=== PATIENT | male | born 1970 | race American Indian/Alaskan Native ===

== ENCOUNTER 2020-03-09 10:02 | Day surgery (SDC) | payer MEDICARE, MEDICAID ==
[2020-03-03 15:38] LABS: BASOPHILS % (AUTO) 0.5 % (0-1); EOSINOPHILS # (AUTO) 0.1 X10'3 (0-0.9); EOSINOPHILS % (AUTO) 1.2 % (0-6); LYMPHOCYTES % (AUTO) 23.6 % (21-51); MEAN CORPUSCULAR HGB CONC 33.3 g/dL (33.0-36.5); MEAN CORPUSCULAR VOLUME 87.2 FL (78-98); MEAN PLATELET VOLUME 10.4 FL (7.4-10.4); MONOCYTES # (AUTO) 0.3 X10'3 (0-0.9); MONOCYTES % (AUTO) 6.7 % (2-12); PRE OP HEMATOCRIT 45.1 % (42.0-52.0); RED BLOOD COUNT 5.17 X10'6 (4.70-6.10); RED CELL DISTRIBUTION WIDTH 13.3 % (11.5-14.5)
[2020-03-03 15:49] LABS: PRE OP PROTIME 10.6 SECONDS (9.0-12.0)
[2020-03-03 15:53] LABS: ALBUMIN 4.2 G/DL (3.4-5.0); ALBUMIN/GLOBULIN RATIO 1.2 (1.1-1.5); ALKALINE PHOSPHATASE 99 IU/L (46-116); BLOOD UREA NITROGEN 11 MG/DL (7-18); CALCIUM 8.9 MG/DL (8.5-10.1); CHLORIDE 107 MMOL/L (99-107); CREATININE 0.92 MG/DL (0.60-1.10); PRE OP ALT 45 U/L (30-65); PRE OP ANION GAP 7 (8-16); PRE OP AST 37 U/L (10-37); PRE OP BILIRUB, TOTAL 0.9 MG/DL (0.0-1.0); PRE OP GLUCOSE 88 MG/DL (70-104); PRE OP SODIUM 144 MMOL/L (135-145); TOTAL CARBON DIOXIDE 30.1 MMOL/L (24-32); TOTAL PROTEIN 7.7 G/DL (6.4-8.2); eGFR 88 ML/MIN
[2020-03-03 16:00] LABS: PRE OP PLATELET COUNT 95 X10'3 (140-440)
[2020-03-03 18:11] LABS: PLATELET FUNCTION (ADP) 116 SECONDS (63-104)
[~2020-03-09] VITALS: Ht 172.7 cm; Wt 102.1 kg
[2020-03-09] VITALS (10 sets, daily range): BP systolic 127–149; BP diastolic 72–94
[~2020-03-09 10:02] MED LIST: ASPI-1130 PO; BUPIVAcaine 0.5% W/EPI /PF 30ml vial ONE; CHOL200016 PO; LIDOcaine 1% W/epiNEPHrine 1:100,000 20ml vial ONE; MAGN500C16 PO; bacitracin 15gm ointment TP ONE; famotidine 20mg tablet PO ONE; methylPREDNISolone acetate 80mg/ml inj**IM only ONE; mupirocin 2% ointment 22GM ONE; oxymetazoline 15 ML nasal spray NS ONE; ringers solution, lacted 1,000 ML IV SCH
[2020-03-09] MEDS ORDERED: midazolam 2 mg/2 ml injection ONE (13:38)
[2020-03-09] MEDS ORDERED: propofol inj 20 ML IV ONE (13:39)
[2020-03-09] MEDS ORDERED: LIDOcaine 2% (20mg/ml) 5ml vial ONE (13:39)
[2020-03-09] MEDS ORDERED: fentaNYL /PF 50mcg/ml 5ml ampule ONE (13:39)
[2020-03-09] MEDS ORDERED: cocaine 4% topical solution 4ml bottle ONE (13:56)
[2020-03-09] MEDS ORDERED: cefTAZidime 1gm inj ONE (13:57)
[2020-03-09] MEDS ORDERED: ringers solution, lacted 1,000 ML IV SCH (13:58)
[2020-03-09] MEDS ORDERED: ondansetron/PF 4mg/2ml inj IV PRN (14:00)
[2020-03-09] MEDS ORDERED: proCHLORperazine 10 MG/2 ml inj IV PRN (14:00)
[2020-03-09] MEDS ORDERED: morphine 4 MG/ML inj SYRINge IV PRN (14:00)
[2020-03-09] MEDS ORDERED: meperidine/PF 25mg/ml syringe IV PRN ×3 (14:00)
[2020-03-09] MEDS ORDERED: morphine 2 MG/ML inj. syringe IV PRN (14:00)
[2020-03-09] MEDS ORDERED: sevoflurane 250ml liquid IH ONE (14:15)
[2020-03-09] MEDS ORDERED: rocuronium 10mg/ml inj IV ONE (14:18)
[2020-03-09] MEDS ORDERED: ondansetron/PF 4mg/2ml inj ONE (14:33)
[2020-03-09] MEDS ORDERED: dexamethasone sod phosphate 4mg/ml inj. ONE (14:34)
--- NOTE | 2020-03-09 15:42 | NUR ---
Received from OR via [facility], accompanied by Anesthesiologist DR STEWART and report given by Anesthesiologist. PT DROWSY, DENIES PAIN, BILAT COTTONOIDS IN PTS NARES, CDI. Addendum: 03/09/20 at 1617 by Rachell Aguirre RN Amended: Links added.
[2020-03-09] MEDS ORDERED: salt irrigation nasal spray 45 ML SPRAY NS PRN (16:00)
[2020-03-09] MEDS ORDERED: oxymetazoline 15 ML nasal spray NS SCH (16:00)
[2020-03-09] MEDS ORDERED: mupirocin 2% ointment 22GM TP SCH (16:00)
--- NOTE | 2020-03-09 17:12 | NUR ---
PT UP AND AMBULATES WELL, VOIDED, D/C INSTRUCTIONS GIVEN AND GONE OVER W/PT WHO VERBALIZED UNDERSTANDING AND STATES HE KNOWS HE HAS THE WRITTEN COPIES OF D/C INSTRUCTIONS IN HIS BELONGINGS BAG W/HIS MEDICATIONS. PT D/CD TO HOME VIA W/C TO PRIVATE VEHICLE W/O INCIDENT. Addendum: 03/09/20 at 1731 by Rachell Aguirre RN Amended: Links added.
== END 2020-03-09 17:12 | disposition home or self-care (01) ==
LOC: PAS 10:02
PROVIDERS: ATTEND Otolaryngology
DX: J34.2 Deviated nasal septum (principal); J34.3 Hypertrophy of nasal turbinates; J33.8 Other polyp of sinus; E11.9 Type 2 diabetes mellitus without complications; E66.9 Obesity, unspecified; Z68.34 Body mass index [BMI] 34.0-34.9, adult; Z79.82 Long term (current) use of aspirin; Z11.59 Encounter for screening for other viral diseases; Z79.899 Other long term (current) drug therapy; Z79.01 Long term (current) use of anticoagulants; Z98.890 Other specified postprocedural states
CPT/HCPCS: 30140; 30520; 36415; 80053; 82948; 85025; 85576; 85610; 85730; 87635; 93005; A6402; C9250; C9803; J0713; J1040; J1100; J2001; J2250; J2405; J2704; J3010; J7120; U0003; A4618; A7000

== ENCOUNTER 2021-11-08 07:00 | Day surgery (SDC) | payer MEDICARE, MEDICAID ==
[2021-11-01 11:42] LABS: BASOPHILS % (AUTO) 0.4 % (0-1); EOSINOPHILS # (AUTO) 0.1 X10'3 (0-0.9); EOSINOPHILS % (AUTO) 2.1 % (0-6); LYMPHOCYTES # (AUTO) 1.3 X10'3 (1.1-4.8); LYMPHOCYTES % (AUTO) 25.7 % (21-51); MEAN CORPUSCULAR HEMOGLOBIN 29.1 PG (27.0-31.0); MEAN CORPUSCULAR HGB CONC 33.6 g/dL (33.0-36.5); MEAN CORPUSCULAR VOLUME 86.6 FL (78-98); MONOCYTES # (AUTO) 0.3 X10'3 (0-0.9); MONOCYTES % (AUTO) 5.1 % (2-12); NEUTROPHILS # (AUTO) 3.4 X10'3 (1.8-7.7); NEUTROPHILS % (AUTO) 66.7 % (42-75); PRE OP HEMATOCRIT 44.2 % (42.0-52.0); PRE OP HEMOGLOBIN 14.9 g/dL (14.0-17.9); PRE OP PLATELET COUNT 116 X10'3 (140-440)
[2021-11-01 11:52] LABS: PRE OP INR 1.1 INR; PRE OP PROTIME 11.2 SECONDS (9.0-12.0)
[2021-11-01 12:06] LABS: ALBUMIN/GLOBULIN RATIO 1.3 (1.1-1.5); BLOOD UREA NITROGEN 16 MG/DL (7-18); CALCIUM 8.4 MG/DL (8.5-10.1); CHLORIDE 105 MMOL/L (99-107); CREATININE 0.89 MG/DL (0.60-1.10); PRE OP ALT 31 U/L (30-65); PRE OP ANION GAP 10 (8-16); PRE OP AST 25 U/L (10-37); PRE OP BILIRUB, TOTAL 0.8 MG/DL (0.0-1.0); PRE OP GLUCOSE 89 MG/DL (70-104); PRE OP POTASSIUM 3.9 MMOL/L (3.4-5.1); PRE OP SODIUM 143 MMOL/L (135-145); TOTAL CARBON DIOXIDE 28.3 MMOL/L (24-32); TOTAL PROTEIN 7.2 G/DL (6.4-8.2); eGFR > 90 ML/MIN
[~2021-11-08] VITALS: Ht 172.7 cm; Wt 98.7 kg
[2021-11-08] VITALS (7 sets, daily range): BP systolic 129–147; BP diastolic 78–93
[~2021-11-08 07:00] MED LIST changes: -ASPI-1130 PO; -BUPIVAcaine 0.5% W/EPI /PF 30ml vial ONE; +ICOS1CAP PO; -LIDOcaine 1% W/epiNEPHrine 1:100,000 20ml vial ONE; -MAGN500C16 PO; -bacitracin 15gm ointment TP ONE; +diazepam 5mg tablet PO ONE; -methylPREDNISolone acetate 80mg/ml inj**IM only ONE; -mupirocin 2% ointment 22GM ONE; -oxymetazoline 15 ML nasal spray NS ONE
[2021-11-08] MEDS ORDERED: oxymetazoline 15 ML nasal spray NS ONE (07:21)
[2021-11-08] MEDS ORDERED: mupirocin 2% ointment 22GM ONE (07:21)
[2021-11-08] MEDS ORDERED: cocaine 4% topical solution 4ml bottle ONE (07:21)
[2021-11-08] MEDS: oxymetazoline 15 ML nasal spray NS SCH ×3 (07:56→10:22)
[2021-11-08] MEDS ORDERED: sevoflurane 250ml liquid IH ONE (09:51)
[2021-11-08] MEDS ORDERED: FENTANYL CITRATE/PF 50 MCG/1 ML VIAL ONE (09:51)
[2021-11-08] MEDS ORDERED: midazolam 1 mg/ML 2ml injection ONE (09:52)
[2021-11-08] MEDS ORDERED: LIDOCAINE 1%/EPI 1:100,000 inj. 10 ML multi-dose vial IJ ONE (10:00)
[2021-11-08] MEDS ORDERED: propofol inj 20 ML IV ONE (10:15)
[2021-11-08] MEDS ORDERED: dexamethasone sod phosphate 4mg/ml inj. ONE (10:15)
[2021-11-08] MEDS ORDERED: LIDOcaine 2% (20mg/ml) 5ml vial ONE (10:15)
[2021-11-08] MEDS ORDERED: ondansetron/PF 4mg/2ml inj ONE (10:15)
[2021-11-08] MEDS ORDERED: glycopyrrolate 0.2mg/ml inj ONE (10:15)
--- NOTE | 2021-11-08 10:38 | NUR ---
Received from OR via [facility] , accompanied by Anesthesiologist EMILY and report given by Anesthesisidney. Addendum: 11/08/21 at 1040 by Darling Ortega RN Amended: Links added.
--- NOTE | 2021-11-08 10:51 | NUR ---
ON 10 LITERS O2 MASK AT 100%, VSS, 20GUAGE IN THE RIGHT WRIST. NO NAUSEA. WILL CONTINUE TO MONITOR Addendum: 11/08/21 at 1053 by Darling Ortega RN Amended: Links added.
[2021-11-08] MEDS ORDERED: salt irrigation nasal spray 45 ML SPRAY NS SCH (11:17)
--- NOTE | 2021-11-08 11:28 | NUR ---
IV D/C NO COMPLICATIONS. VSS. PATIENTS STATES NO PAIN. MEDS SENT HOME. EDUCATED POST OP CARE. PT VERBALIZED AN UNDERSTANDING OF POST OP CARE. PT DRIVEN HOME BY NEIGHBOR. Addendum: 11/08/21 at 1200 by Darling Ortega RN Amended: Links added.
== END 2021-11-08 11:28 | disposition home or self-care (01) ==
LOC: PAS 07:00
PROVIDERS: ATTEND Otolaryngology
DX: J34.3 Hypertrophy of nasal turbinates (principal); J34.89 Other specified disorders of nose and nasal sinuses; J32.8 Other chronic sinusitis; Z20.822 Contact with and (suspected) exposure to COVID-19; Z98.890 Other specified postprocedural states; Z79.899 Other long term (current) drug therapy; Z87.891 Personal history of nicotine dependence; Z79.01 Long term (current) use of anticoagulants
CPT/HCPCS: 30140; 30520; 36415; 80053; 82948; 85025; 85576; 85610; 85730; 87635; 93005; A6402; C9250; C9803; J1100; J2250; J2405; J2704; J3010; J3490; J7030; J7120; U0003; U0005; Z7506; Z7512; 88304; 88311; A4618; A7000